=== PATIENT | male | born 2000 | race Caucasian/White ===

== ENCOUNTER 2022-01-01 00:25 | Emergency (ER) | payer OTHER ==
[2022-01-01] MEDS ORDERED: PHENYLEPHRINE 0.25% 15 ML BTL NS ONE (00:45)
[2022-01-01] MEDS ORDERED: PHENYLEPHRINE 1% 15 ML BTL NS ONE (00:59)
--- NOTE | 2022-01-01 01:04 | NUR ---
PT SEEN BY DR OLIVEIRA. PT LEFT BEFORE TRIAGE
== END 2022-01-01 01:04 | disposition left against medical advice (07) ==
LOC: MED 00:25
DX: R04.0 Epistaxis (principal)
CPT/HCPCS: 99281